=== PATIENT | male | born 1955 | race Caucasian/White ===

== ENCOUNTER 2017-09-23 16:37 | Inpatient (IN) | payer MEDICARE ==
[~2017-09-23] VITALS: Ht 167.6 cm; Wt 69.0 kg
[2017-09-23] MEDS ORDERED: PANTOPRAZOLE SODIUM IV 40 MG in IV DEXTROSE 5% 100 ML IV ONE (16:57)
[2017-09-23] MEDS ORDERED: IV NS 1000 ML 1,000 ML IV ONE ×2 (17:00→17:15)
[2017-09-23] MEDS ORDERED: PIPERACILLIN SODIUM/TAZOBACTAM 3.375 G in IV DEXTROSE 5% 50 ML IV STA (17:02)
--- NOTE | 2017-09-23 17:06 | NUR ---
Pt out of ER for stat ct.
[2017-09-23] MEDS ORDERED: TRAZ-147 PO (17:07)
[2017-09-23] MEDS ORDERED: METO-357 PO (17:07)
[2017-09-23] MEDS ORDERED: ATOR40TA PO (17:07)
[2017-09-23] MEDS ORDERED: LEVE500T20 PO (17:07)
[2017-09-23] MEDS ORDERED: ACETAMINOPHEN 325 MG SUPP RC ONE (17:15)
[2017-09-23] MEDS ORDERED: PANTOPRAZOLE SODIUM 40 MG VIAL ONE (17:38)
[2017-09-23] MEDS ORDERED: PIPERACILLIN/TAZOBACTAM/D5W 50 ML IV ONE ×2 (17:39→22:02)
--- NOTE | 2017-09-23 17:40 | NUR ---
Pt started seizing, Md at the bedside. seizure precautions implememted earlier.
[2017-09-23] MEDS ORDERED: LORAZEPAM 2 MG/1 ML VIAL ONE (17:41)
[2017-09-23] MEDS ORDERED: LEVETIRACETAM IV 500 MG in IV DEXTROSE 5% 100 ML IV ONE (17:41)
[2017-09-23] MEDS ORDERED: LORAZEPAM 2 MG/1 ML VIAL IV ONE (17:42)
[2017-09-23 17:46] LABS: ABG BASE EXCESS -1.6 mmol/L; ABG HCO3 22.7 mmol/L; ABG PH 7.405 (7.350-7.450); ABG PO2 52.3 mmHg (75.0-100.0); ABG SITE RIGHT RADIAL; VENT MODE Nasal Cannula
[2017-09-23 17:52] LABS: BASOPHILS % (AUTO) 0.3 % (0.0-2.0); HEMATOCRIT 36.1 % (36.7-47.1); HEMOGLOBIN 12.5 g/dL (12.5-16.3); LYMPHOCYTES # (AUTO) 0.4 K/uL (20.0-40.0); MEAN CORPUSCULAR HEMOGLOBIN 35.4 uug (23.8-33.4); MEAN CORPUSCULAR HGB CONC 35 g/dL (32.5-36.3); MEAN CORPUSCULAR VOLUME 102.2 fL (73.0-96.2); MONOCYTES # (AUTO) 0.8 K/uL (2.0-10.0); MONOCYTES % (AUTO) 6.5 % (0.0-11.0); NEUTROPHILS # (AUTO) 11.3 K/uL (1.8-8.9); NEUTROPHILS % (AUTO) 90.2 % (38.5-71.5); PLATELET COUNT (AUTO) 98 K/uL (152-348); RED BLOOD CELL COUNT(AUTO) 3.53 MIL/uL (4.06-5.63); WHITE BLOOD COUNT (AUTO) 12.5 K/uL (3.6-10.2)
[2017-09-23] MEDS ORDERED: LEVETIRACETAM 500 MG/5 ML VIAL IV ONE (17:56)
[2017-09-23 18:03] LABS: NEUTROPHILS % (MANUAL) 0 % (42-75)
[2017-09-23 18:08] LABS: TOTAL PROTEIN, SERUM 6.8 g/dL (6.4-8.2)
[2017-09-23 18:15] LABS: MAGNESIUM 1.2 mg/dL (1.8-2.4)
[2017-09-23] MEDS ORDERED: VANCOMYCIN IV 200 ML ONE (18:26)
[2017-09-23] MEDS ORDERED: VANCOMYCIN 1G/D5W 200 ML PIGGYBACK IV ONE (18:30)
[2017-09-23] MEDS ORDERED: ACETAMINOPHEN 325 MG SUPP ONE (18:31)
[2017-09-23] MEDS ORDERED: MAGNESIUM SULFATE 2 GM in IV DEXTROSE 5% 100 ML IV ONE (19:00)
[2017-09-23] MEDS ORDERED: IV NS 1000 ML 1,000 ML IV STA (19:00)
[2017-09-23] MEDS ORDERED: CEFTRIAXONE 1 G in IV DEXTROSE 5% 50 ML IV ONE (19:00)
[2017-09-23] MEDS ORDERED: methylPREDNISolone SOD SUCC 125 MG/2 ML VIAL IV ONE (19:01)
[2017-09-23] MEDS ORDERED: CEFTRIAXONE 1 G VIAL ONE (19:02)
--- NOTE | 2017-09-23 19:10 | NUR ---
Pt able to open eyes at this time, mumbling and incohorant.
[2017-09-23] MEDS ORDERED: IPRATROPIUM BROMIDE 0.5 MG/2.5 ML NEBU NEB ONE (19:15)
[2017-09-23] MEDS ORDERED: ALBUTEROL SULFATE 2.5 MG/3 ML NEBU NEB ONE (19:15)
[2017-09-23] MEDS ORDERED: MAGNESIUM SULFATE/D5W 200 ML ONE (19:18)
[2017-09-23] MEDS ORDERED: POTASSIUM CHLORIDE 50 ML ONE (19:20)
--- NOTE | 2017-09-23 19:25 | NUR ---
Report given to Sukhdeep DAVIS. I relinquish care of pt at this time.
[2017-09-23] MEDS ORDERED: DILTIAZEM HCL 25 MG IV IV ONE ×2 (19:30→20:00)
--- NOTE | 2017-09-23 19:30 | NUR ---
Opens eyes spontaneously, restless, unable to follow directions from staff. Mumbling incoherent words. Moving all extremities. EKG done with difficulty, shows Sinus tachy 150s-160s. Skin hot, dry with temp 103 degrees. Pt unkempt, incontinent of urine and stools. Made clean, dry and comfortable.
[2017-09-23] MEDS ORDERED: DILTIAZEM HCL 25 MG IV ONE ×2 (19:40→19:59)
--- NOTE | 2017-09-23 19:55 | NUR ---
Al cath Fr. 16 inserted by Kevin Currie LVN with immediate return of yellow urine with sediments. Pt tolerated procedure well. Specimen for UA, C/S and drug screen sent to lab.
[2017-09-23] MEDS: POTASSIUM CHLORIDE 50 ML IV SCH ×4 (20:00→23:03)
[2017-09-23] MEDS ORDERED: DILTIAZEM HCL IV 125 MG in IV DEXTROSE 5% 100 ML IV PRN (20:15)
[2017-09-23] MEDS ORDERED: POTASSIUM CHLORIDE 150 ML ONE (20:24)
[2017-09-23 21:05] LABS: *BILIRUBIN,URIN NEGATIVE (NEGATIVE); *BLOOD, URINE 1+ (NEGATIVE); *CLARITY,URINE SLIGHTLY CLOUDY (CLEAR); *COLOR,URINE YELLOW (YELLOW); *KETONES,URINE NEGATIVE (NEGATIVE); *PROTEIN,URINE NEGATIVE (NEGATIVE); *UROBILINOGEN,URINE 0.2 E.U./dl (NORMAL); LEUKOCYTE ESTERASE ,URINE NEGATIVE (NEGATIVE); NITRITE, URINE NEGATIVE (NEGATIVE); UGLUCOSE TRACE (NEGATIVE)
[2017-09-23 21:11] LABS: BACTERIA,URINE NONE SEEN /HPF (NONE SEEN); SQUAMOUS EPITHELIAL CELL,UR NONE SEEN /HPF (NONE SEEN); WBC,URINE 0-3 /HPF (0-3)
[2017-09-23 21:12] LABS: *AMPHETAMINE, URINE NEGATIVE (NEGATIVE); *BARBITURATE, URINE NEGATIVE (NEGATIVE); *CANNABINOID, URINE NEGATIVE (NEGATIVE); *COCCAINE, URINE NEGATIVE (NEGATIVE); *OPIATE, URINE NEGATIVE (NEGATIVE); *PHENCYCLIDINE SCREEN,URINE NEGATIVE (NEGATIVE)
[2017-09-23] MEDS: PIPERACILLIN/TAZOBACTAM/D5W 3.375 G in PREMIXED 1 EACH IV SCH (21:59)
[2017-09-23] MEDS ORDERED: IBUPROFEN 400 MG TABLET PO ONE (22:00)
[2017-09-23] MEDS ORDERED: IBUPROFEN 400 MG TABLET ONE (22:01)
--- NOTE | 2017-09-23 22:30 | NUR ---
Report given to RYAN Hernandez CCU. Patient transported to CCU. IV to continue infusion at CCU.
--- NOTE | 2017-09-23 22:50 | NUR ---
Admitted to CCU Room-01 from ER per chetna under the services of [facility]. Adm. Dx: Sepsis. Pt awake, restless, uncooperative, confused/disoriented. Barely speaking, does not engage in conversation. Routine CCU admission care rendered. Please see CCU admission profile. FINISH SANDER Bob notified of admission, new orders noted.
[2017-09-23 23:00] VITALS: BP 93/67
[2017-09-23 23:15] VITALS: BP 130/85
[2017-09-23] MEDS ORDERED: ACETAMINOPHEN 325 MG TABLET PO PRN (23:15)
[2017-09-23] MEDS ORDERED: ONDANSETRON 4 MG/2 ML VIAL IV PRN (23:15)
[2017-09-23] MEDS ORDERED: MAGNESIUM HYDROXIDE 30 ML LIQUID UDC PO PRN (23:15)
[2017-09-23 23:30] VITALS: BP 135/83
[2017-09-23 23:59] VITALS: BP 137/91
[2017-09-24] VITALS (16 sets, daily range): BP systolic 112–178; BP diastolic 60–100
--- NOTE | 2017-09-24 00:05 | NUR ---
LINH Rojas here briefly to see pt, no new orders.
[2017-09-24] MEDS: ZOLPIDEM 5 MG TABLET PO PRN ×2 (01:05→21:41)
[2017-09-24] MEDS: IV NS 1000 ML 1,000 ML IV PRN ×2 (02:50→14:00)
--- NOTE | 2017-09-24 04:00 | NUR ---
Periods of restlessness, pulling on EKG wires, pulse ox, gown. Reality-orientation done. Pt appears more alert, answering some questions. Able to tell RN he lives in [place] with his lady landlord. Denies recollection of events that prompted hospitalization. Evasive to further questions. Safety, fall and seizure precautions maintained at all times.
[2017-09-24 05:08] LABS: MAGNESIUM 1.8 mg/dL (1.8-2.4); PHOSPHOROUS 1.7 mg/dL (2.5-4.9)
[2017-09-24 05:30] LABS: HEMATOCRIT 37.3 % (36.7-47.1); HEMOGLOBIN 13.2 g/dL (12.5-16.3); MEAN CORPUSCULAR HEMOGLOBIN 34.9 uug (23.8-33.4); MEAN CORPUSCULAR HGB CONC 36 g/dL (32.5-36.3); MEAN CORPUSCULAR VOLUME 98.3 fL (73.0-96.2); NEUTROPHILS % (AUTO) 92.5 % (38.5-71.5); PLATELET COUNT (AUTO) 109 K/uL (152-348); RED BLOOD CELL COUNT(AUTO) 3.79 MIL/uL (4.06-5.63); WHITE BLOOD COUNT (AUTO) 12.8 K/uL (3.6-10.2)
[2017-09-24 05:31] LABS: BASOPHILS % (AUTO) 0.1 % (0.0-2.0); LYMPHOCYTES # (AUTO) 0.3 K/uL (20.0-40.0); LYMPHOCYTES % (AUTO) 2.7 % (20.5-51.5); MONOCYTES # (AUTO) 0.6 K/uL (2.0-10.0); MONOCYTES % (AUTO) 4.7 % (0.0-11.0); NEUTROPHILS # (AUTO) 11.8 K/uL (1.8-8.9)
--- NOTE | 2017-09-24 06:00 | NUR ---
No seizure activities noted since admission. Please see CCU flowsheet for trends and clinical data. Admission data questionnaire unable to complete due to pt's confusion. No family or significant other noted.
[2017-09-24] MEDS ORDERED: PIPERACILLIN/TAZOBACTAM/D5W 50 ML IV ONE (06:14)
[2017-09-24] MEDS: PIPERACILLIN/TAZOBACTAM/D5W 3.375 G in PREMIXED 1 EACH IV SCH ×3 (06:17→21:00)
--- NOTE | 2017-09-24 08:45 | NUR ---
INFORMED GONZALO SYRUP BLENDER. PATIENT C/O CHEST PAIN 11/20. PATIENT IS RESTLESS IN BED, HAVING LABORED BREATHING, NS AND JUMPS UP TACHYCARDIAC TO 130'S PATIENT, PLACED PATIENT ON 2L NC. ORDERED 2MG IV MORPHINE X1. EKG, CXR, AND STAT TROPONIN DONE.
[2017-09-24] MEDS ORDERED: MORPHINE SULFATE 4 MG/1 ML DISP.SYRIN IV ONE (09:00)
[2017-09-24] MEDS ORDERED: MORPHINE SULFATE 2 MG/1 ML DISP.SYRIN IV ONE (09:00)
[2017-09-24] MEDS: METOPROLOL SUCCINATE XL 50 MG TAB.SR.24H PO SCH (09:48)
[2017-09-24] MEDS: LEVETIRACETAM IV 1,000 MG in IV DEXTROSE 5% 100 ML IV SCH ×2 (09:49→20:10)
[2017-09-24] MEDS: HYDROCODONE/APAP 5-325MG TABLET PO PRN ×2 (09:49→22:42)
[2017-09-24] MEDS: ATORVASTATIN 40 MG TABLET PO SCH (09:49)
[2017-09-24] MEDS: TRAZODONE 100 MG TABLET PO SCH ×2 (09:50→16:58)
--- NOTE | 2017-09-24 11:30 | NUR ---
DOCTOR AIDA IN THE UNIT TO SEE NEW CONSULT.
--- NOTE | 2017-09-24 12:00 | NUR ---
AUGIE MELTON IN THE UNIT TO SEE PATIENT. OK TO DOWNGRADE FROM ICU.
--- NOTE | 2017-09-24 14:00 | NUR ---
INFORMED AUGIE AIRPORT CONTROL OPERATOR THAT PATIENT HAS <30ML/HR DRAINING FROM DUTTA AND URINE HAS BECOME MORE CONCENTRATED. ASKED IF PATIENT WILL STILL BE DOWNGRADED FROM ICU.
--- NOTE | 2017-09-24 15:30 | NUR ---
GONZALO ORDER TO TRANSFER PATIENT TO [facility]. PATIENT TO CONTINUE IV HYDRATION AND MONITOR OUTPUT.
[2017-09-24] MEDS: POTASSIUM CHLORIDE 10 MEQ TAB.PRT.SR PO SCH ×2 (15:54→17:52)
[2017-09-24] MEDS ORDERED: NEUTRA PHOS PACKET PO ONE (16:00)
--- NOTE | 2017-09-24 16:10 | NUR ---
TRANSFERRED FORM CCU TO [facility] FOR CONTINUITY OF CARE. ALERT BUT VERY FORGETFUL. TRIED TO STAND UP WITH IV LINE AND DUTTA CATHETER. REORIENTED TO SURROUNDINGS AND USE OF CALL LIGHT. KEEPS GETTING OUT OF BED IN SPITE OF ORIENTATION. 1:1 SITTER PROVIDED FOR SAFETY
--- NOTE | 2017-09-24 20:00 | NUR ---
PT ALERT AWAKE WITH PERIODS OF FORGETFULNESS. NEEDS FREQUENT REMINDERS AND REORIENTATION TO PLACE. SAFETY PRECAUTIONS ENFORCED. SINUS RHYTHM NOTED. MAINTAINING IV HYDRATION WITH NS @100ML/HR. NO FEVER OR CHILLS PRESENT. DENIES ANY PAIN OR SOB. WILL CONTINUE TO MONITOR. SITTER AT BEDSIDE. 3 SIDE RAILS RAISED WITH BED ALARM ON.
[2017-09-25] VITALS: BP 99/78
--- NOTE | 2017-09-25 | NUR ---
PT ASLEEP IN ROOM. HOME SUPPORT WORKER SHOWING SINUS RHYTHM WITH HR 75. WILL CONTINUE TO MONITOR. CALL LIGHT WITHIN REACH. NEW IV SITE TO RIGHT FOREARM APPLIED. NO REACTION TO ZOSYN ATB THERAPY.
[2017-09-25 04:00] VITALS: BP 145/88
[2017-09-25] MEDS: PIPERACILLIN/TAZOBACTAM/D5W 3.375 G in PREMIXED 1 EACH IV SCH ×2 (05:04→14:24)
[2017-09-25 06:37] LABS: PHOSPHOROUS 1.6 mg/dL (2.5-4.9); POTASSIUM 3.3 mmol/L (3.5-5.1)
[2017-09-25] MEDS: IV NS 1000 ML 1,000 ML IV PRN (06:45)
[2017-09-25 07:46] VITALS: BP 150/86
--- NOTE | 2017-09-25 08:00 | NUR ---
AWAKE ALERT BUT CONFUSED X3 STILL REQUIRES 1;1 sitter for safety. no ss of pain or distress. REMAINS SR ON MONITOR
[2017-09-25] MEDS: TRAZODONE 100 MG TABLET PO SCH ×2 (08:19→16:13)
[2017-09-25] MEDS: ATORVASTATIN 40 MG TABLET PO SCH (08:19)
[2017-09-25] MEDS: METOPROLOL SUCCINATE XL 50 MG TAB.SR.24H PO SCH (08:20)
[2017-09-25] MEDS: LEVETIRACETAM IV 1,000 MG in IV DEXTROSE 5% 100 ML IV SCH (08:36)
[2017-09-25] MEDS ORDERED: POTASSIUM CHLORIDE 20 MEQ TAB.PRT.SR PO ONE (10:45)
[2017-09-25 11:59] LABS: BASOPHILS % (AUTO) 0.1 % (0.0-2.0); EOSINOPHILS # (AUTO) 0.1 K/uL (0.0-0.7); EOSINOPHILS % (AUTO) 0.6 % (0.0-7.0); HEMOGLOBIN 10.9 g/dL (12.5-16.3); LYMPHOCYTES # (AUTO) 0.5 K/uL (20.0-40.0); LYMPHOCYTES % (AUTO) 4.9 % (20.5-51.5); MEAN CORPUSCULAR HEMOGLOBIN 35.3 uug (23.8-33.4); MEAN CORPUSCULAR HGB CONC 35 g/dL (32.5-36.3); MEAN CORPUSCULAR VOLUME 100.7 fL (73.0-96.2); MONOCYTES # (AUTO) 0.7 K/uL (2.0-10.0); MONOCYTES % (AUTO) 6.9 % (0.0-11.0); NEUTROPHILS # (AUTO) 8.6 K/uL (1.8-8.9); NEUTROPHILS % (AUTO) 87.5 % (38.5-71.5); PLATELET COUNT (AUTO) 81 K/uL (152-348); RED BLOOD CELL COUNT(AUTO) 3.08 MIL/uL (4.06-5.63); WHITE BLOOD COUNT (AUTO) 9.8 K/uL (3.6-10.2)
[2017-09-25 12:00] VITALS: BP 143/74
--- NOTE | 2017-09-25 12:00 | NUR ---
SIMONE BY HOSPITALIST FOR FOLLOW-UP SEE NOTES
--- NOTE | 2017-09-25 14:38 | NUR ---
PATIENT IN NO ACUTE DISTRESS, REMAINS CONFUSED, CONTINUE WITH 1:! SITTER FOR SAFETY. NO ACTIVE SEIZURE, PRECAUTION OBSERVED.
[2017-09-25] MEDS ORDERED: NEUTRA PHOS PACKET PO ONE (15:45)
--- NOTE | 2017-09-25 16:05 | NUR ---
PATIENT BECAME AGITATED AND BEGAN PULLING ON DUTTA CATHETER. DUTTA CATHETER REMOVED. WILL MONITOR FOR URINE OUTPUT. PATIENT NOW IN BED, BECOMING LESS AGITATED.
--- NOTE | 2017-09-25 17:35 | NUR ---
MONITOR FOR BURST OF AGITATION AND COMBATIVENESS. PREFERS TO SIT ON CHAIR AT THIS TIME. CONTINUE ONE TO ONE. WILL OBSERVE VOIDING PATTERN POST DUTTA REMOVAL.
[2017-09-25 17:39] VITALS: BP 141/95
[2017-09-25 19:28] VITALS: BP 159/87
[2017-09-25] MEDS ORDERED: LEVOFLOXACIN 500 MG TABLET PO SCH (20:00)
[2017-09-25] MEDS: QUETIAPINE FUMARATE 25 MG TABLET PO SCH (20:00)
[2017-09-25] MEDS: LEVETIRACETAM 500 MG TABLET PO SCH (20:00)
[2017-09-25] MEDS: ZOLPIDEM 5 MG TABLET PO PRN (20:00)
[2017-09-25] MEDS: CEFTRIAXONE 1 G in IV DEXTROSE 5% 50 ML IV SCH (21:19)
[2017-09-26] VITALS (8 sets, daily range): BP systolic 132–162; BP diastolic 54–114
--- NOTE | 2017-09-26 06:28 | NUR ---
PAGED ON-CALL DERRICK REGARDING PT ELEVATED BP 161/114 HR 101. STILL AWAITING CALLBACK AT THIS TIME. PATIENT SLEPT NO LONGER THAN 10 MINUTES AT A TIME. CONSTANTLY PULLING OUT TELE BOX AND ELECTRODES. PT RIPPED OUT HIS IV LINE. REINSERTED TO THE RIGHT FOREARM. PATIENT IS CONFUSED AND KEEP STATING THAT WE ARE PUTTING GLASS TUBES AND METAL RODS IN HIS BODY. 1:1 SITTER AT BEDSIDE AT ALL TIMES FOR SAFETY. REDIRECTED AND REORIENTED NEEDED.
--- NOTE | 2017-09-26 06:31 | NUR ---
VOIDING WELL SINCE THE DUTTA WAS D/C YESTERDAY. WENT TO THE BR 5 TIMES AND HAD 2 BM.
[2017-09-26 06:36] LABS: BASOPHILS % (AUTO) 0.4 % (0.0-2.0); EOSINOPHILS # (AUTO) 0.1 K/uL (0.0-0.7); EOSINOPHILS % (AUTO) 1.4 % (0.0-7.0); LYMPHOCYTES % (AUTO) 13.2 % (20.5-51.5); MEAN CORPUSCULAR HEMOGLOBIN 35.6 uug (23.8-33.4); MEAN CORPUSCULAR HGB CONC 36 g/dL (32.5-36.3); MEAN CORPUSCULAR VOLUME 99.9 fL (73.0-96.2); MONOCYTES # (AUTO) 0.6 K/uL (2.0-10.0); MONOCYTES % (AUTO) 8.1 % (0.0-11.0); NEUTROPHILS # (AUTO) 5.9 K/uL (1.8-8.9); NEUTROPHILS % (AUTO) 76.9 % (38.5-71.5); PLATELET COUNT (AUTO) 98 K/uL (152-348); WHITE BLOOD COUNT (AUTO) 7.6 K/uL (3.6-10.2)
[2017-09-26 06:46] LABS: MAGNESIUM 1.4 mg/dL (1.8-2.4); PHOSPHOROUS 1.6 mg/dL (2.5-4.9); POTASSIUM 3.1 mmol/L (3.5-5.1)
--- NOTE | 2017-09-26 07:10 | NUR ---
Received pt in bed, tele box was removed by the pt last night and refuses to places it back on. 1:1 sitter provided for safety. No immediate s/s of distress, discomfort or SOB.
[2017-09-26 08:52] LABS: EOSINOPHILS % (MANUAL) 1 % (0-8); LYMPHOCYTES % (MANUAL) 16 % (20-40); MONOCYTES % (MANUAL) 7 % (2-10); NEUTROPHILS % (MANUAL) 76 % (42-75)
[2017-09-26] MEDS: ATORVASTATIN 40 MG TABLET PO SCH (08:55)
[2017-09-26] MEDS: TRAZODONE 100 MG TABLET PO SCH (08:55)
[2017-09-26] MEDS: LEVETIRACETAM 500 MG TABLET PO SCH ×2 (08:55→21:02)
[2017-09-26] MEDS: METOPROLOL SUCCINATE XL 50 MG TAB.SR.24H PO SCH (08:55)
--- NOTE | 2017-09-26 09:47 | NUR ---
Pt is noted to be agitated, trying to remove his IV line. Pt is telling sitter and myself to get out of the room
[2017-09-26] MEDS ORDERED: POTASSIUM CHLORIDE 20 MEQ TAB.PRT.SR PO ONE (10:15)
--- NOTE | 2017-09-26 10:30 | NUR ---
Pt is yelling at the sitter, pt is noted pacing in his room, pt is closing the door to his room. MANAGER ENT aware
[2017-09-26] MEDS ORDERED: HALOPERIDOL LACTATE IV ONE (10:45)
[2017-09-26] MEDS ORDERED: DEXTROSE 5% IV ONE (10:45)
[2017-09-26] MEDS: MAGNESIUM SULFATE/D5W 100 ML IV SCH ×2 (10:55→13:04)
--- NOTE | 2017-09-26 11:10 | NUR ---
Noted pt has removed his IV live from the RFA. A new 20g IV live started on his LFA, pt tolerated procedure well.
[2017-09-26] MEDS ORDERED: NEUTRA PHOS PACKET PO ONE (15:30)
[2017-09-26] MEDS: QUETIAPINE FUMARATE 25 MG TABLET PO SCH ×2 (16:12→21:02)
--- NOTE | 2017-09-26 18:09 | NUR ---
Noted per TIRE FINISHER BP 162/100, I retook BP and noted 161/89. MACHINE SPREADER aware, new orders for Hydralazine 10mg PO Q6HRS PRN for SBP>160
[2017-09-26] MEDS ORDERED: hydrALAZINE HCL 10 MG TABLET PO PRN (18:15)
[2017-09-26] MEDS ORDERED: TRAZODONE 100 MG TABLET PO SCH (21:00)
[2017-09-26] MEDS ORDERED: CEFTRIAXONE 1 G VIAL ONE (22:41)
[2017-09-26] MEDS: CEFTRIAXONE 1 G in IV DEXTROSE 5% 50 ML IV SCH (23:12)
[2017-09-27 06:17] VITALS: BP 135/62
[2017-09-27 06:37] LABS: CREATININE 0.8 mg/dL (0.6-1.3); MAGNESIUM 1.5 mg/dL (1.8-2.4); PHOSPHOROUS 3.1 mg/dL (2.5-4.9)
[2017-09-27 06:51] LABS: BASOPHILS % (AUTO) 0.3 % (0.0-2.0); EOSINOPHILS # (AUTO) 0.1 K/uL (0.0-0.7); EOSINOPHILS % (AUTO) 2.2 % (0.0-7.0); HEMOGLOBIN 10.7 g/dL (12.5-16.3); LYMPHOCYTES # (AUTO) 0.9 K/uL (20.0-40.0); LYMPHOCYTES % (AUTO) 16.6 % (20.5-51.5); MEAN CORPUSCULAR HEMOGLOBIN 35.8 uug (23.8-33.4); MEAN CORPUSCULAR HGB CONC 36 g/dL (32.5-36.3); MEAN CORPUSCULAR VOLUME 100.2 fL (73.0-96.2); MONOCYTES # (AUTO) 0.7 K/uL (2.0-10.0); MONOCYTES % (AUTO) 12.4 % (0.0-11.0); NEUTROPHILS # (AUTO) 3.8 K/uL (1.8-8.9); NEUTROPHILS % (AUTO) 68.5 % (38.5-71.5); PLATELET COUNT (AUTO) 97 K/uL (152-348); RED BLOOD CELL COUNT(AUTO) 2.99 MIL/uL (4.06-5.63)
[2017-09-27 07:10] LABS: WHITE BLOOD COUNT (AUTO) 5.6 K/uL (3.6-10.2)
[2017-09-27] MEDS: ATORVASTATIN 40 MG TABLET PO SCH (08:20)
[2017-09-27] MEDS: LEVETIRACETAM 500 MG TABLET PO SCH (08:20)
[2017-09-27] MEDS: METOPROLOL SUCCINATE XL 50 MG TAB.SR.24H PO SCH (08:21)
[2017-09-27] MEDS: QUETIAPINE FUMARATE 25 MG TABLET PO SCH (08:21)
[2017-09-27 09:49] VITALS: BP 145/70
--- NOTE | 2017-09-27 10:45 | NUR ---
Several calls taken place between Eva from [employer] regarding the pt's condition, pending discharge to either home with home health or SNF. Eva also spoke to LINH Rojas, LINH Rojas specified she would like the pt. to go to a SNF due to his non-compliance to medications at home, seizures, disheveledness and concern on who can help him with his prescriptions
[2017-09-27] MEDS ORDERED: LEVE500T9 PO (11:04)
[2017-09-27] MEDS ORDERED: QUET25TA PO ×2 (11:04)
[2017-09-27] MEDS ORDERED: TRAZ-147 PO (11:04)
[2017-09-27] MEDS ORDERED: CEFT1VIA15 IV (11:04)
[2017-09-27 11:17] LABS: BAND % (MANUAL) 2 % (0-10); EOSINOPHILS % (MANUAL) 4 % (0-8); LYMPHOCYTES % (MANUAL) 17 % (20-40); MONOCYTES % (MANUAL) 11 % (2-10); NEUTROPHILS % (MANUAL) 66 % (42-75)
[2017-09-27 11:23] VITALS: BP 144/88
[2017-09-27] MEDS: POTASSIUM CHLORIDE 10 MEQ TAB.PRT.SR PO SCH ×2 (11:39→14:45)
--- NOTE | 2017-09-27 13:10 | NUR ---
Eva from [facility] called back and stated she found a SNF for the pt., [facility],
[2017-09-27] MEDS ORDERED: MAGNESIUM SULFATE/D5W 100 ML IV SCH (14:15)
--- NOTE | 2017-09-27 14:30 | NUR ---
Pt. is being discharged with orders. Pt.'s own medications have been picked up from pharmacy and given back to the pt. Personal belongings signed for by the pt. [id number] ambulance arrived to pick him up accompanied by two passenger vessel chef. Pt is stable with no immediate s/s of SOB, pain, distress or discomfort. Nursing report given to Judith
[2017-09-27 14:35] VITALS: BP 149/91
== END 2017-09-27 14:45 | DRG 871 ==
LOC: ER 16:39 → CCU 22:10 → TELE-TD 09-24 16:30 → TELE 09-25 11:12 → MED 09-26 11:01
PROVIDERS: ADMIT Nurse Practitioner Acute Care; ATTEND Nurse Practitioner Acute Care
DX: A41.9 Sepsis, unspecified organism (principal); J15.6 Pneumonia due to other Gram-negative bacteria; I21.4 Non-ST elevation (NSTEMI) myocardial infarction; J69.0 Pneumonitis due to inhalation of food and vomit; E87.1 Hypo-osmolality and hyponatremia; E87.2 Acidosis; E78.5 Hyperlipidemia, unspecified; E83.42 Hypomagnesemia; E86.0 Dehydration; E87.6 Hypokalemia; G40.909 Epilepsy, unspecified, not intractable, without status epilepticus; I10 Essential (primary) hypertension; Z86.73 Personal history of transient ischemic attack (TIA), and cerebral infarction without residual deficits; I49.8 Other specified cardiac arrhythmias; F29 Unspecified psychosis not due to a substance or known physiological condition; R09.02 Hypoxemia
CPT/HCPCS: 36415; 36600; 51702; 70030-TC; 70450; 71045; 80307; 83605; 83735; 84100; 84443; 85025; 85610; 87040; 87086; 93005; 93307; A4663; C9113; J0696; J1630; J1953; J2060; J2270; J2405; J2543; J3370; J3475; J3480; J3490; J7030; J7060